=== PATIENT | female | born 1990 | race African-American/Black ===

== ENCOUNTER 2023-09-26 14:02 | Emergency (ER) | payer MEDICAID ==
[~2023-09-26] VITALS: Ht 167.6 cm; Wt 60.0 kg
[~2023-09-26 14:02] MED LIST: ALBUTEROL
[2023-09-26 14:05] VITALS: BP 111/76; PULSE 76; RESP 16; O2SAT 99
[2023-09-26] MEDS ORDERED: ALBU6.7H15 INH (14:45)
[2023-09-26] MEDS ORDERED: ACETAMINOPHEN 500MG TABLET PO NR (14:45)
[2023-09-26 15:01] VITALS: TEMP 98.6
== END 2023-09-26 15:10 | disposition home or self-care (01) ==
LOC: ER 14:13
DX: S00.12XA Contusion of left eyelid and periocular area, initial encounter (principal); S00.11XA Contusion of right eyelid and periocular area, initial encounter; Z76.0 Encounter for issue of repeat prescription; F41.9 Anxiety disorder, unspecified; J45.909 Unspecified asthma, uncomplicated; F12.90 Cannabis use, unspecified, uncomplicated; Y08.89XA Assault by other specified means, initial encounter; Y93.89 Activity, other specified; Y92.89 Other specified places as the place of occurrence of the external cause; Y99.8 Other external cause status
CPT/HCPCS: 99283

== ENCOUNTER 2025-10-17 10:14 | Emergency (ER) | payer MEDICAID ==
[~2025-10-17] VITALS: Ht 160 cm; Wt 91.0 kg
[~2025-10-17 10:14] MED LIST changes: +ALBU6.7H15 INH
[2025-10-17 10:52] VITALS: BP 127/85; PULSE 92; RESP 18; TEMP 36.7; O2SAT 98
[2025-10-17] MEDS ORDERED: OFLO5DRO4 EACH EAR (11:20)
== END 2025-10-17 11:39 | disposition home or self-care (01) ==
LOC: ER 10:14 → EDSEX 10:14 → ER 11:39
DX: H60.93 Unspecified otitis externa, bilateral (principal); J45.909 Unspecified asthma, uncomplicated; F10.90 Alcohol use, unspecified, uncomplicated; Y90.9 Presence of alcohol in blood, level not specified
CPT/HCPCS: 99283